=== PATIENT | female | born 1990 | race Caucasian/White ===

== ENCOUNTER → 2020-04-03 | Outpatient (CLI) | payer OTHER ==
[~2020-04-03] MED LIST: BIRTH CONTROL PO; COLACE 100100 MG/CAP PO; EFFEXOR 75M75 MG/TAB PO; IBU600 MG PO; NATURAL MAGNES200 MG PO; PERCOCET 325 MG1 TA2 PO; PRENATAL TABLET PO; PROBIOTIC DIGE1 EACH PO; VITAMIND3 5000 PO; ZOFRAN 4MG T4 MG/TAB PO
== END ==
LOC: ZCOL.LAB 09:40
DX: Z20.828 Contact with and (suspected) exposure to other viral communicable diseases (principal)

== ENCOUNTER 2020-04-09 07:21 | Inpatient (IN) | payer OTHER ==
[2020-04-09] VITALS (52 sets, daily range): BP systolic 107–170; BP diastolic 59–98; PULSE 73–108; TEMP 98–98.4
[~2020-04-09] VITALS: Ht 162.7 cm; Wt 91.4 kg
--- NOTE | 2020-04-09 07:20 | NUR ---
0720- PT. AMBULATORY TO THE UNIT WITH BY HER SIDE. ORIENTATED TO ROOM AND CHANGED INTO CLEAN GOWN. PT. REPORTS GFM, OCCASIONAL CTX AND NO LOF OR BLEEDING. PT. IS A OF DR. ARMSTRONG HERE FOR INDUCTION OF LABOR THIS MORNING AT 39.5. 0731- EFM AND TOCO ON AND TRACING. VITALS TAKEN, ASSESSMENT COMPLETED, CONSENTS SIGNED AND IV STARTED. CALL LIGHT WITHIN REACH. DISCUSSED PLAN FOR THE DAY AND ANSWERED ANY QUESTIONS. DENIES FURTHER NEEDS AT THIS TIME.
[~2020-04-09 07:21] MED LIST changes: -COLACE 100100 MG/CAP PO; -EFFEXOR 75M75 MG/TAB PO; -IBU600 MG PO; -NATURAL MAGNES200 MG PO; -PERCOCET 325 MG1 TA2 PO; -PRENATAL TABLET PO; -PROBIOTIC DIGE1 EACH PO; -VITAMIND3 5000 PO
[2020-04-09] MEDS ORDERED: PRENATAL TABLET PO (07:39)
[2020-04-09] MEDS ORDERED: EFFEXOR 75M75 MG/TAB PO (07:40)
[2020-04-09] MEDS ORDERED: VITAMIND3 5000 PO (07:41)
[2020-04-09] MEDS ORDERED: COLACE 100100 MG/CAP PO (07:41)
[2020-04-09] MEDS ORDERED: NATURAL MAGNES200 MG PO (07:41)
[2020-04-09] MEDS ORDERED: PROBIOTIC DIGE1 EACH PO (07:42)
--- NOTE | 2020-04-09 08:40 | NUR ---
0835- DR. ARMSTRONG ON UNIT AND REVIEWING STRIP AND CHART. 0840- DR. ARMSTRONG AND THIS NURSE TO BEDSIDE. DISCUSSED PLAN OF CARE FOR THE DAY AND AROM LATER THIS MORNING AFTER HIS SURGERY. PT. DENIES FURTHER NEEDS AT THIS TIME, CALL LIGHT WITHIN REACH.
[2020-04-09 09:08] LABS: BASO % 0.2 % (0.0-2.0); EOS # 0.1 (0.0-0.7); EOS % 1.3 % (0-4.0); GRAN # 6.7 (1.4-6.5); HEMATOCRIT 35.7 % (37.0-47.0); HEMOGLOBIN 11.7 g/dl (12.5-16.0); LYMPH # 2.9 (1.2-3.4); LYMPH % 27.7 % (20.0-51.0); MEAN CELL VOLUME 86 fl (80.0-100.0); MEAN CORPUSCULAR HEMOGLOBIN 28 pg (27.0-31.0); MEAN CORPUSCULAR HGB CONC 33 g/dl (33.0-37.0); MEAN PLATELET VOLUME 12.3 fl (7.4-10.4); MONO # 0.6 (0.1-0.6); MONO % 5.7 % (1.7-9.3); PLATELET COUNT 164 K/mm3 (130-400); RED BLOOD COUNT 4.14 M/mm3 (4.10-5.30); REDCELL DISTRIBUTION WIDTH-CV 15.9 % (11.5-14.5)
--- NOTE | 2020-04-09 10:25 | NUR ---
1025- DR. ARMSTRONG AND THIS NURSE TO BEDSIDE FOR SVE AND AROM. 1030- AROM, MODERATE AMOUNT OF CLEAR FLUID NOTED BY PROVIDER. SVE /-. DISCUSSED PLAN OF CARE, PT. DENIES FURTHER NEEDS OR QUESTIONS. CALL LIGHT WITHIN REACH.
--- NOTE | 2020-04-09 11:58 | NUR ---
1158- DR. ARMSTRONG AND THIS RN TO BEDSIDE FOR SVE AND EVALUTATION. 1200- SVE PER PROVIDER IS 2-/-2. PT. DENIES QUESTIONS OR FURTHER NEEDS AT THIS POINT IN TIME. CALL GLO HENRIQUEZ.
--- NOTE | 2020-04-09 13:30 | NUR ---
1330- THIS RN TO BEDSIDE TO SET UP FOR EPIDURAL PLACEMENT. MATERNAL O2 PLACED ON PT, AND PT. SAT ON SIDE OF BED. RN REMAINS IN THE ROOM DURING THIS TIME. 1335- CHALO GOMES TO BEDSIDE FOR EPIDURAL PLACEMENT. DISCUSSED PROCEDURE AND ANSWERS QUESTIONS. 1347- TEST DOSE, SEE ANESTHESIA RECORD. 1350- PT HELPED BACK INTO BED IN THE WL POSITION. RN REMAINS AT BEDSIDE.
--- NOTE | 2020-04-09 15:45 | NUR ---
1545- THIS RN TO BEDSIDE TO DO SVE PER DOCTORS ORDERS. 1550- PULLED BACK BLANKETS TO NOTICE A MODERATE AMOUNT OF BLOODY SHOW ON THE BED AND ON THE PATIENT'S GOWN WITH A QUARTER SIZE CLOT ON THE CHUX PAD. SVE WAS 6/90/-1 WITH A SMALL/MODERATE AMOUNT OF BRIGHT RED BLOOD THAT CAME BACK ONTO MY GLOVE. CALLED MY CHARGE DORIS AND ASKED HER TO COME LOOK AND EVALUTE WITH ME. 1555- DORIS RN TO BEDSIDE. SVE REVEALES 6/90/-1 WITH A SMALL TO MODERATE AMOUNT OF BRIGHT RED BLOOD NOTED BACK IN HER GLOVES AND ANOTHER DIME SIZE CLOT WHEN REMOVING HER HAND. 1600- JAYDE FERRER TO BEDSIDE TO EVALUATE BLOOD. HELPED CLEAN PATIENT UP, NEW GOWN, NEW CHUX, AND TOWEL UNDERNEATH PT. DISCUSSED WITH PATIENT AND ANSWERED QUESTIONS. ADVISED WE WOULD CALL DR. ARMSTRONG AND LET HIM KNOW. PT. DENIES FURTHER NEEDS. CALL LIGHT WITHIN REACH.
--- NOTE | 2020-04-09 16:25 | NUR ---
THIS RN TO BEDSIDE TO TURN OFF PITOCIN AND START O2 ON MOM PER DOCTORS ORDERS. STARTED FLUID BOLUS WELL PER DOCTORS. ORDERS. THIS RN REMAINS AT BEDSIDE UNTIL 1644 WHEN THIS RN LEFT THE ROOM TO UPDATE THE DOCTOR PER ORDERS.
--- NOTE | 2020-04-09 16:55 | NUR ---
1655- DR. ARMSTRONG AND THIS RN TO BEDSIDE FOR EVALUATION. 1656- SVE 6-7 WITH FREE FLOW BLOOD NOTED BY PROVIDER WITH PUSHING UP ON BABY HEAD TO GET IT OFF THE CERVIX. DR. ARMSTRONG DISCUSSES SECTION WITH PATIENT AND SPOUSE DUE TO WORRY ABOUT POSSIBLE PARTIAL PLACENTAL ABRUPTION . THIS RN THEN CALLS ALL STAFF NECESSARY TO LET THEM KNOW WE ARE GOING TO A SECTION.
[2020-04-10 01:35] VITALS: BP 129/69; PULSE 80; TEMP 98.5
[2020-04-10 05:30] VITALS: BP 117/71; PULSE 86; TEMP 98.1
[2020-04-10 08:14] VITALS: BP 122/68; PULSE 86; TEMP 98.1
--- NOTE | 2020-04-10 10:19 | NUR ---
Initial visit; Consult taking place, Vocational Training Director left card of congratulations for the of their son and information regarding the availability of spiritual care at our hospital.
[2020-04-10 16:01] VITALS: BP 122/68; PULSE 78; TEMP 98.3
[2020-04-10 20:00] VITALS: BP 124/76; PULSE 90; TEMP 98
[2020-04-11 06:45] VITALS: BP 104/68; PULSE 78; TEMP 98.2
--- NOTE | 2020-04-11 09:39 | NUR ---
Follow-up visit; Parents thanked for offering congratulations and God's blessings for the of their son. wished family a wonderful New Year.
[2020-04-11] MEDS ORDERED: IBU600 MG PO (09:47)
[2020-04-11] MEDS ORDERED: PERCOCET 325 MG1 TA2 PO (09:47)
== END 2020-04-11 12:15 | disposition home or self-care (01) | DRG 788 ==
LOC: OB 07:21 → LDR 07:21 → OB 16:34
PROVIDERS: ADMIT Obstetrics & Gynecology
PROC: 10D00Z1 Extraction of Products of Conception, Low, Open Approach (ICD-10-PCS; principal; 2020-04-09)
DX: O45.93 Premature separation of placenta, unspecified, third trimester (principal); Z37.0 Single live birth; O99.344 Other mental disorders complicating childbirth; F41.9 Anxiety disorder, unspecified; Z3A.39 39 weeks gestation of pregnancy; O99.52 Diseases of the respiratory system complicating childbirth; J45.909 Unspecified asthma, uncomplicated; O99.62 Diseases of the digestive system complicating childbirth; K21.9 Gastro-esophageal reflux disease without esophagitis; K58.9 Irritable bowel syndrome, unspecified; Z88.0 Allergy status to penicillin; Z88.1 Allergy status to other antibiotic agents
CPT/HCPCS: J0690; J1100; J1885; J2210; J2405; J2590; J7120

== ENCOUNTER 2021-12-16 15:29 | Emergency (ER) | payer BC ==
[~2021-12-16] VITALS: Ht 162.6 cm; Wt 87.3 kg
[~2021-12-16 15:29] MED LIST changes: +COLACE 100100 MG/CAP PO; +EFFEXOR 75M75 MG/TAB PO; +IBU600 MG PO; +NATURAL MAGNES200 MG PO; +PERCOCET 325 MG1 TA2 PO; +PRENATAL TABLET PO; +PROBIOTIC DIGE1 EACH PO; +VITAMIND3 5000 PO
[2021-12-16 15:38] VITALS: TEMP 97.7
[2021-12-16 16:20] LABS: HEMATOCRIT 40.7 % (37.0-47.0); MEAN CELL VOLUME 91 fl (80.0-100.0); MEAN CORPUSCULAR HEMOGLOBIN 31 pg (27-31); MEAN CORPUSCULAR HGB CONC 34 g/dl (33.0-37.0); MEAN PLATELET VOLUME 11.2 fl (7.4-10.4); PLATELET COUNT 175 K/mm3 (130-400); RED BLOOD COUNT 4.48 M/mm3 (4.10-5.30); REDCELL DISTRIBUTION WIDTH-CV 13.5 % (11.5-14.5)
[2021-12-16 16:27] LABS: BAND 6 % (0-10); EOSINOPHIL 2 % (0-4); LYMPHOCYTE 28 % (20.0-51.0); METAMYELOCYTE 2 % (0-0); NEUTROPHILS 56 % (42.0-75.2); PLATELET ESTIMATE NORMAL (NORMAL)
[2021-12-16 16:41] LABS: ALBUMIN 2.9 gm/dL (3.5-5.0); BILIRUBIN,TOTAL 0.4 mg/dL (0.2-1.2); CREATININE, serum 0.51 mg/dL (0.57-1.11); TOTAL PROTEIN 6.6 gm/dL (6.2-8.1)
[2021-12-16 16:47] LABS: TROPONIN-I 0.028 ng/mL (0.00-0.033)
[2021-12-16] MEDS ORDERED: PEPCID 20MG TAB20 MG PO (17:07)
[2021-12-16 17:19] VITALS: BP 116/68; PULSE 85
== END 2021-12-16 17:22 | disposition home or self-care (01) ==
LOC: COL.ER 15:29
PROVIDERS: Emergency Medicine
DX: R07.9 Chest pain, unspecified (principal); J32.9 Chronic sinusitis, unspecified; Z20.822 Contact with and (suspected) exposure to COVID-19